=== PATIENT | male | born 1975 | race Caucasian/White ===

== ENCOUNTER 2024-07-24 13:40 | Outpatient (CLI) | payer OTHER ==
--- NOTE | 2024-07-24 14:05 | CARDIAC PROCEDURE NOTE ---
Stress Test Report Service Date: 07/24/24 Service Time: 14:00 Ordering Provider: January Martinez MD Indication for Test: Assess non-exertional chest discomfort and palpitations. Significant Medical History: Sundar is referred for an exercise treadmill test to assess for inducible ischemia as a contributor to non-exertional symptoms that include palpitations (described as a central substernal "tickle" feeling) and intermittent "stabbing" pain in the lower central or lower right chest region. He had a career in the [employer] followed by current sedentary work in [employer]. He no longer pursues aerobic "conditioning" workouts due to lower back pain, though does undertake strenuous home projects (e.g. recently built a retaining wall), and has never experienced chest symptoms doing physical tasks. As part of the workup for his concerns, he recently underwent a diagnostic echocardiogram at [facility] that he believes was fully normal, as well as a rhythm monitoring study, result of which are as of yet unknown to him. Cardiac Risk Factors: Positive for history of tobacco smoking (1 PPD between 8548-9548 followed by nicotine vaping until he quit in December of this year) and mildly positive for family history of CAD (maternal grandmother with fatal PR in her 60's, mother with "CHF"); negative for history of hypertension, diabetes and hyperlipidemia. Type of Stress Test: Exercise Treadmill Test (ETT) Procedure: -Exercise Treadmill Test- After signing informed consent, the patient performed treadmill exercise using a Alireza protocol. The patient exercised for 11 minutes 39 seconds and achieved a peak heart rate of 171 (98 percent predicted maximum heart rate for age), and an estimated workload of 13.5 METS. The test was terminated due to fatigue/shortness of breath. Resting heart rate: 75 Peak heart rate: 171 Normal response to exercise. Resting BP: 137/86 Peak BP: 210/63 (during exercise), 219/70 (in Recovery) Hypertensive BP response to exercise. Room air oxygen saturation during exercise ranged between 96-98% Rhythm during exercise: sinus rhythm throughut, with zero PVCs recorded. Symptoms: He denied experiencing any chest discomfort or palpitations. EKG at rest showed normal sinus rhythm with borderline QTc of 455 msec, otherwise normal. EKG at peak stress showed J-point depression with upsloping ST depression, NOT meeting diagnostic EKG criteria for inducible ischemia. In Recovery HR decreased while BP initially increased, then decreased towards baseline level (HR was 104, BP 142/84 at 7:00). No imaging was ordered with this stress test. IJeffry MD, was present throughout this treadmill stress study and supervised it in its entirety. Summary: 1) Exercise tolerance was slightly above average for age and sex as evidenced by JUANITO of -5%. 2) Normal resting EKG. 3) Adequate level of exercise was achieved on this treadmill stress test. 4) Hypertensive BP response to exercise. 5) No ischemic changes by EKG criteria were seen at peak stress. 6) No imaging was ordered with this test. Conclusions and Recommendations: 1) Overall, the results of this exercise treadmill test are reassuring, with exercise time slightly above average, vigorous hemodynamic response, no symptoms suggestive of angina and no evidence of inducible ischemia by serial EKGs. 2) The patient awaits completion of his evaluation with the results of his ambulatory rhythm monitoring study.
== END 2024-07-24 13:41 | disposition home or self-care (01) ==
LOC: DI 13:40
PROVIDERS: ATTEND Nurse Practitioner Family
DX: R00.2 Palpitations (principal); Z87.891 Personal history of nicotine dependence; Z82.49 Family history of ischemic heart disease and other diseases of the circulatory system
CPT/HCPCS: 93017